=== PATIENT | male | born 1945 | race African-American/Black ===

== ENCOUNTER 2018-04-29 10:25 | Inpatient (IN) | payer MEDICARE ==
[~2018-04-29] VITALS: Ht 182.9 cm; Wt 130.2 kg
[~2018-04-29 10:25] MED LIST: OLME40TA11
[2018-04-29] MEDS ORDERED: FUROSEMIDE 40MG/4ML VIAL IVP ONE (11:45)
[2018-04-29] MEDS ORDERED: NITROGLYCERIN 0.4MG TABLET SL SL PRN (11:45)
[2018-04-29] MEDS ORDERED: NITROGLYCERIN OINT 1GM/INCH UDPKT TD ONE (11:45)
[2018-04-29 12:30] LABS: BASOPHILS % 0.6 % (0.0-2.0); EOSINOPHILS % 0.1 % (0.0-5.0); HEMATOCRIT. 43.2 % (42.0-52.0); HEMOGLOBIN. 14.5 g/dL (14.0-18.0); LYMPHOCYTES % 11.6 % (20.0-50.0); MEAN CORPUSCULAR HEMOGLOBIN 29.9 pg (28.0-32.0); MEAN CORPUSCULAR VOLUME 89.1 fL (80.0-94.0); MEAN PLATELET VOLUME 9.6 fl (7.4-10.4); NEUTROPHILS % 82.7 % (40.0-76.0); PLATELET 181 x1000/uL (130-400); RED BLOOD CELL COUNT 4.85 mill/uL (4.7-6.1); RED CELL DISTRIBUTION WIDTH 14.7 % (11.6-14.6)
[2018-04-29 12:38] LABS: CHLORIDE 105 mEq/L (98-107)
[2018-04-29] MEDS ORDERED: ASPIRIN 325MG TABLET PO ONE (13:15)
[2018-04-29] MEDS ORDERED: MAGNESIUM/ALUMINUM HYDROXIDE/SIMETHICONE 30ML UDC PO PRN (15:15)
[2018-04-29] MEDS ORDERED: ONDANSETRON HCL 4MG/2ML INJ IV PRN (15:15)
[2018-04-29] MEDS ORDERED: CLONIDINE 0.1MG TABLET PO PRN (15:15)
[2018-04-29] MEDS ORDERED: DIPHENHYDRAMINE 50MG/ML VIAL IV PRN (15:15)
[2018-04-29] MEDS ORDERED: LORAZEPAM 2MG/ML CPJ IV PRN (15:15)
[2018-04-29] MEDS ORDERED: DOCUSATE SODIUM 100MG CAPSULE PO PRN (15:15)
[2018-04-29] MEDS ORDERED: ACETAMINOPHEN 325MG TABLET PO PRN (15:15)
[2018-04-29] MEDS ORDERED: IPRATROPIUM/ALBUTEROL 0.5-3(2.5)MG/3ML NEB INH PRN (15:15)
[2018-04-29] MEDS ORDERED: GUAIFENESIN 200MG/10ML SUGAR FREE UDC PO PRN (15:15)
[2018-04-29] MEDS ORDERED: LOSARTAN POTASSIUM 25 MG TABLET PO SCH (16:12)
[2018-04-29] MEDS ORDERED: ENOXAPARIN 40MG/0.4ML SYR SUBCUT NR (16:15)
[2018-04-29 16:48] LABS: CLARITY URINE CLEAR (CLEAR); COLOR URINE YELLOW (YELLOW); KETONES URINE NEGATIVE (NEGATIVE); LEUKOCYTE ESTERASE URINE NEGATIVE (NEGATIVE); NITRITE URINE NEGATIVE (NEGATIVE); OCCULT BLOOD URINE NEGATIVE (NEGATIVE); PH URINE 6.5 (4.5-8.0); PROTEIN URINE NEGATIVE (NEGATIVE); SPECIFIC GRAVITY URINE 1.007 (1.005-1.030); UROBILINOGEN URINE 0.2 E.U./dL (0.2-1.0)
[2018-04-29 17:12] LABS: *AMPHETAMINES SCREEN URINE NEGATIVE (NEGATIVE); *BARBITURATES SCREEN URINE NEGATIVE (NEGATIVE); *BENZODIAZEPINES SCREEN URINE NEGATIVE (NEGATIVE); *COCAINE SCREEN URINE NEGATIVE (NEGATIVE)
[2018-04-29 17:13] LABS: CANNABINOID URINE SCREEN NEGATIVE (NEGATIVE); METHADONE URINE SCREEN NEGATIVE (NEGATIVE); OPIATES URINE SCREEN NEGATIVE (NEGATIVE); PHENCYCLIDINE URINE SCREEN NEGATIVE (NEGATIVE)
[2018-04-29 18:10] LABS: HEPATITIS B SURFACE ANTIGEN NEGATIVE
[2018-04-29] MEDS: FUROSEMIDE 40MG/4ML VIAL IVP SCH (18:13)
[2018-04-29] MEDS: CARVEDILOL 3.125 MG TABLET PO SCH (18:13)
[2018-04-29 18:30] VITALS: BP 159/85
[2018-04-29 18:40] LABS: HEPATITIS A AB IGM NEGATIVE (NEGATIVE)
[2018-04-29 20:00] VITALS: BP 129/83
[2018-04-29] MEDS ORDERED: INFLUENZA VIRUS VACCINE(AFLURIA) 0.5ML SYR IM ONE (20:00)
[2018-04-30] VITALS: BP 121/66
[2018-04-30 04:00] VITALS: BP 119/63
[2018-04-30 06:53] LABS: CHLORIDE 103 mEq/L (98-107)
[2018-04-30 06:55] LABS: BASOPHILS % 0.4 % (0.0-2.0); EOSINOPHILS % 0.5 % (0.0-5.0); HEMATOCRIT. 40.6 % (42.0-52.0); HEMOGLOBIN. 13.9 g/dL (14.0-18.0); LYMPHOCYTES % 21.6 % (20.0-50.0); MEAN CORPUSCULAR HEMOGLOBIN 30.2 pg (28.0-32.0); MEAN CORPUSCULAR VOLUME 88.1 fL (80.0-94.0); MEAN PLATELET VOLUME 9.9 fl (7.4-10.4); MONOCYTES % 6.1 % (2.0-8.0); NEUTROPHILS % 71.4 % (40.0-76.0); PLATELET 182 x1000/uL (130-400); RED BLOOD CELL COUNT 4.61 mill/uL (4.7-6.1); RED CELL DISTRIBUTION WIDTH 14.8 % (11.6-14.6)
[2018-04-30 07:14] LABS: LDL CHOLESTEROL 76 mg/dL (5-100)
[2018-04-30 07:15] LABS: HDL CHOLESTEROL 33 mg/dL (40-59)
[2018-04-30 08:00] VITALS: BP 122/80
[2018-04-30] MEDS ORDERED: REGADENOSON 0.4 MG/5 ML IV SCH (08:15)
[2018-04-30 08:41] LABS: BG CARBOXYHEMOGLOBIN 1.4 % (0.5-1.5); BG DEOXYHEMOGLOBIN 3.7 % (0.0-5.0); BG METHEMOGLOBIN 0.3 % (0.0-1.5); BG OXYGEN SATURATION 96.2 % (92.0-98.5); BG OXYHEMOGLOBIN 94.6 % (94.0-97.0); BG PCO2 39.3 mmHg (35.0-45.0); BG PH 7.455 (7.350-7.450); BG PO2 80.6 mmHg (75.0-100.0); BG SAMPLE SITE RIGHT RADIAL; BG VENT MODE NASAL CANNULA
[2018-04-30] MEDS ORDERED: MEDICATION NOT ON FORMULARY EA (Olmesartan Medoxomil (Benicar) 40 MG) PO SCH (09:00)
[2018-04-30] MEDS ORDERED: FUROSEMIDE 40MG/4ML VIAL IVP SCH (09:00)
[2018-04-30] MEDS: CARVEDILOL 3.125 MG TABLET PO SCH ×2 (09:00→17:00)
[2018-04-30] MEDS: ENOXAPARIN 30MG/0.3ML SYR SUBCUT SCH ×2 (09:53→20:46)
[2018-04-30] MEDS: LOSARTAN POTASSIUM 25 MG TABLET PO SCH (09:54)
[2018-04-30] MEDS: FUROSEMIDE 40MG/4ML VIAL IVP SCH ×2 (09:54→17:53)
[2018-04-30] MEDS ORDERED: REGADENOSON 0.4 MG/5 ML IV ONE (12:27)
[2018-04-30] MEDS: POTASSIUM CHLORIDE 20MEQ TABLET SR PO SCH (14:23)
[2018-04-30] MEDS ORDERED: ENOXAPARIN 40MG/0.4ML SYR SUBCUT SCH (15:15)
[2018-04-30 16:00] VITALS: BP 103/73
[2018-04-30 20:00] VITALS: BP 137/71
[2018-04-30] MEDS ORDERED: ATORVASTATIN CALCIUM 10MG TABLET PO SCH (21:00)
[2018-04-30] MEDS: IPRATROPIUM/ALBUTEROL 0.5-3(2.5)MG/3ML NEB HHN SCH (21:22)
[2018-05-01] VITALS: BP 133/70
[2018-05-01] MEDS: IPRATROPIUM/ALBUTEROL 0.5-3(2.5)MG/3ML NEB HHN SCH ×3 (00:47→09:59)
[2018-05-01 04:00] VITALS: BP 125/86
[2018-05-01 05:56] LABS: BASOPHILS % 0.5 % (0.0-2.0); EOSINOPHILS % 1.2 % (0.0-5.0); HEMATOCRIT. 42.5 % (42.0-52.0); HEMOGLOBIN. 14.5 g/dL (14.0-18.0); LYMPHOCYTES % 32.5 % (20.0-50.0); MEAN CORPUSCULAR HEMOGLOBIN 30.2 pg (28.0-32.0); MEAN CORPUSCULAR VOLUME 88.5 fL (80.0-94.0); MEAN PLATELET VOLUME 9.7 fl (7.4-10.4); MONOCYTES % 8.1 % (2.0-8.0); NEUTROPHILS % 57.7 % (40.0-76.0); PLATELET 180 x1000/uL (130-400); RED BLOOD CELL COUNT 4.81 mill/uL (4.7-6.1); RED CELL DISTRIBUTION WIDTH 14.6 % (11.6-14.6)
[2018-05-01 06:44] LABS: CHLORIDE 102 mEq/L (98-107)
[2018-05-01 08:00] VITALS: BP 128/77
[2018-05-01] MEDS: LOSARTAN POTASSIUM 25 MG TABLET PO SCH (09:00)
[2018-05-01] MEDS: FUROSEMIDE 40MG/4ML VIAL IVP SCH (09:00)
[2018-05-01] MEDS: CARVEDILOL 3.125 MG TABLET PO SCH (09:32)
[2018-05-01] MEDS: POTASSIUM CHLORIDE 20MEQ TABLET SR PO SCH (09:32)
[2018-05-01] MEDS: ENOXAPARIN 30MG/0.3ML SYR SUBCUT SCH (09:33)
[2018-05-01 10:15] VITALS: BP 128/77
== END 2018-05-01 11:47 | disposition home or self-care (01) | DRG 291 ==
LOC: ER 12:45 → 8WST 14:25 → EDBEDREQ 14:30 → ENRESERV 15:15
PROVIDERS: ADMIT Internal Medicine Geriatric Medicine; ATTEND Internal Medicine Geriatric Medicine
DX: I11.0 Hypertensive heart disease with heart failure (principal); J96.00 Acute respiratory failure, unspecified whether with hypoxia or hypercapnia; I50.43 Acute on chronic combined systolic (congestive) and diastolic (congestive) heart failure; G47.33 Obstructive sleep apnea (adult) (pediatric); R74.0 Nonspecific elevation of levels of transaminase and lactic acid dehydrogenase [LDH]; E78.5 Hyperlipidemia, unspecified; R74.8 Abnormal levels of other serum enzymes; D64.9 Anemia, unspecified; E66.01 Morbid (severe) obesity due to excess calories; I27.29 Other secondary pulmonary hypertension; Z82.49 Family history of ischemic heart disease and other diseases of the circulatory system; Z87.891 Personal history of nicotine dependence; Z68.38 Body mass index [BMI] 38.0-38.9, adult
CPT/HCPCS: 36415; 36600; 71045; 76700; 78452; 80048; 80061; 80076; 80305; 82248; 82375; 82805; 83036; 83735; 83880; 84443; 84484; 85379; 86705; 86709; 86803; 87340; 93005; 93017; 93306; 93970; 94640; 96374; 97162; 99285; A9500; J1650; J1940; J2785; J7620

== ENCOUNTER 2020-07-22 13:59 | Inpatient (IN) | payer MEDICARE, OTHER ==
[~2020-07-22] VITALS: Ht 182.9 cm; Wt 113.4 kg
[~2020-07-22 13:59] MED LIST changes: -OLME40TA11; +OLME40TA11 PO
[2020-07-22] MEDS ORDERED: FUROSEMIDE 40MG/4ML VIAL IVP ONE (14:30)
[2020-07-22 15:15] LABS: CHLORIDE 104 mEq/L (98-107)
[2020-07-22 15:18] LABS: BASOPHILS % 0.5 % (0.0-2.0); EOSINOPHILS % 0.1 % (0.0-5.0); HEMATOCRIT. 41.6 % (42.0-52.0); LYMPHOCYTES % 11.6 % (20.0-50.0); MEAN CORPUSCULAR HEMOGLOBIN 30.1 pg (28.0-32.0); MEAN CORPUSCULAR VOLUME 89.4 fL (80.0-94.0); MONOCYTES % 2.5 % (2.0-8.0); NEUTROPHILS % 85.3 % (40.0-76.0); PLATELET 109 x1000/uL (130-400); RED BLOOD CELL COUNT 4.66 mill/uL (4.7-6.1); RED CELL DISTRIBUTION WIDTH 17.1 % (11.6-14.6)
[2020-07-22 15:20] LABS: ETHANOL BLOOD < 10 mg/dL
[2020-07-22 15:25] LABS: T4 FREE 1.11 ng/dL (0.76-1.46)
[2020-07-22] MEDS ORDERED: MAGNESIUM/ALUMINUM HYDROXIDE/SIMETHICONE 30ML UDC PO PRN (16:00)
[2020-07-22] MEDS ORDERED: ACETAMINOPHEN 325MG TABLET PO PRN (16:00)
[2020-07-22] MEDS ORDERED: ONDANSETRON HCL 4MG/2ML INJ IV PRN (16:00)
[2020-07-22] MEDS ORDERED: CLONIDINE 0.1MG TABLET PO PRN (16:00)
[2020-07-22] MEDS ORDERED: IPRATROPIUM/ALBUTEROL 0.5-3(2.5)MG/3ML NEB HHN PRN (16:00)
[2020-07-22 16:59] LABS: CLARITY URINE CLEAR (CLEAR); COLOR URINE YELLOW (YELLOW); KETONES URINE NEGATIVE (NEGATIVE); LEUKOCYTE ESTERASE URINE NEGATIVE (NEGATIVE); NITRITE URINE NEGATIVE (NEGATIVE); OCCULT BLOOD URINE NEGATIVE (NEGATIVE); PH URINE 7.5 (4.5-8.0); PROTEIN URINE TRACE (NEGATIVE); SPECIFIC GRAVITY URINE 1.008 (1.005-1.030); UROBILINOGEN URINE 0.2 E.U./dL (0.2-1.0)
[2020-07-22 17:21] LABS: *BENZODIAZEPINES SCREEN URINE NEGATIVE (NEGATIVE); *COCAINE SCREEN URINE NEGATIVE (NEGATIVE); METHADONE URINE SCREEN NEGATIVE (NEGATIVE); OPIATES URINE SCREEN NEGATIVE (NEGATIVE)
[2020-07-22 17:22] LABS: *AMPHETAMINES SCREEN URINE NEGATIVE (NEGATIVE); *BARBITURATES SCREEN URINE NEGATIVE (NEGATIVE); CANNABINOID URINE SCREEN NEGATIVE (NEGATIVE); PHENCYCLIDINE URINE SCREEN NEGATIVE (NEGATIVE)
[2020-07-22] MEDS: FUROSEMIDE 40MG/4ML VIAL IV SCH (17:44)
[2020-07-22] MEDS: ENOXAPARIN 30MG/0.3ML SYR SUBCUT SCH (21:20)
[2020-07-22 23:03] VITALS: BP 143/99
[2020-07-22 23:11] VITALS: BP 143/99
[2020-07-22] MEDS ORDERED: FURO40TA5 MT (23:30)
[2020-07-22] MEDS ORDERED: AMLO10TA80 MT (23:30)
[2020-07-22] MEDS ORDERED: COLC0.6C3 MT (23:30)
[2020-07-22] MEDS ORDERED: RIVA20TA MT (23:30)
[2020-07-23] VITALS (7 sets, daily range): BP systolic 130–155; BP diastolic 79–93
[2020-07-23] MEDS ORDERED: POTASSIUM CHLORIDE 20MEQ TABLET SR PO SCH ×2 (01:00→13:15)
[2020-07-23 06:58] LABS: BASOPHILS % 0.9 % (0.0-2.0); EOSINOPHILS % 0.5 % (0.0-5.0); HEMATOCRIT. 41.2 % (42.0-52.0); HEMOGLOBIN. 13.7 g/dL (14.0-18.0); LYMPHOCYTES % 15.7 % (20.0-50.0); MEAN CORPUSCULAR HEMOGLOBIN 29.6 pg (28.0-32.0); MEAN CORPUSCULAR VOLUME 89.2 fL (80.0-94.0); MONOCYTES % 4.9 % (2.0-8.0); PLATELET 117 x1000/uL (130-400); RED BLOOD CELL COUNT 4.61 mill/uL (4.7-6.1); RED CELL DISTRIBUTION WIDTH 17.5 % (11.6-14.6)
[2020-07-23] MEDS: FUROSEMIDE 40MG/4ML VIAL IV SCH ×2 (07:54→16:53)
[2020-07-23] MEDS: ENOXAPARIN 30MG/0.3ML SYR SUBCUT SCH (07:55)
[2020-07-23 07:57] LABS: CHLORIDE 102 mEq/L (98-107)
[2020-07-23] MEDS ORDERED: LOSARTAN POTASSIUM 50 MG TABLET PO SCH (09:00)
[2020-07-23] MEDS ORDERED: HYDROCODONE/ACETAMINOPHEN 5/325MG TABLET PO PRN (10:15)
[2020-07-23 12:16] LABS: BG BASE EXCESS 4.9 mmol/L (-2.0-2.0); BG CARBOXYHEMOGLOBIN 1.1 % (0.5-1.5); BG HCO3 ACT 27.6 mmol/L (22.0-26.0); BG METHEMOGLOBIN 0.2 % (0.0-1.5); BG OXYGEN SATURATION 92.9 % (92.0-98.5); BG OXYHEMOGLOBIN 91.7 % (94.0-97.0); BG PCO2 35.2 mmHg (35.0-45.0); BG PH 7.513 (7.350-7.450); BG SAMPLE SITE RIGHT RADIAL; BG TOTAL HEMOGLOBIN 15.5 g/dL (12.0-18.0); BG VENT MODE ROOM AIR
[2020-07-23 12:32] LABS: D-DIMER 0.6 mg/L FEU (<0.50); INR 1.2
[2020-07-23] MEDS ORDERED: REGADENOSON 0.4 MG/5 ML IV NR (13:45)
[2020-07-23] MEDS ORDERED: RIVAROXABAN 20 MG TABLET PO SCH (17:00)
[2020-07-23] MEDS ORDERED: METOPROLOL TARTRATE 25MG TABLET PO SCH (21:00)
== END 2020-07-23 21:52 | disposition short-term general hospital (02) | DRG 205 ==
LOC: ER 13:59 → EDBEDREQ 14:19 → 6WST 15:50 → EDBEDREQ 15:53 → EDBEDREQTM 15:53 → EDBEDREQ 18:21 → ENRESERV 22:13
PROVIDERS: ADMIT Internal Medicine; ATTEND Internal Medicine
DX: M94.0 Chondrocostal junction syndrome [Tietze] (principal); I50.43 Acute on chronic combined systolic (congestive) and diastolic (congestive) heart failure; D68.59 Other primary thrombophilia; I48.11 Longstanding persistent atrial fibrillation; J98.11 Atelectasis; I42.8 Other cardiomyopathies; I11.0 Hypertensive heart disease with heart failure; R06.03 Acute respiratory distress; E87.6 Hypokalemia; R73.9 Hyperglycemia, unspecified; E80.6 Other disorders of bilirubin metabolism; G47.33 Obstructive sleep apnea (adult) (pediatric); Z20.822 Contact with and (suspected) exposure to COVID-19; Z79.01 Long term (current) use of anticoagulants; Z82.49 Family history of ischemic heart disease and other diseases of the circulatory system; Z79.899 Other long term (current) drug therapy; Z87.891 Personal history of nicotine dependence
CPT/HCPCS: 36415; 36600; 71045; 76700; 78582; 80053; 80305; 80320; 81003; 82375; 82805; 83735; 83880; 84439; 84443; 84484; 85025; 85379; 87426; 93005; 93306; 93970; 99285; A9558; J1650; J1940; G0480